=== PATIENT | female | born 1965 | race Caucasian/White ===

== ENCOUNTER 2016-12-04 12:16 | Outpatient (CLI) | payer BC ==
[2016-12-04 16:12] LABS: #Basophils 0.1 thou/uL (0.0-0.2); #Eosinphils 0.4 thou/uL (0.0-0.7); #Lymphocytes 1.9 thou/uL (1.20-3.40); #Monocytes 0.5 thou/uL (0.11-0.59); #Neutrophils 3.5 thou/uL (1.40-6.50); %Basophils 2.1 % (0.0-1.0); %Eosinophils 5.9 % (0.0-10.0); %Lymphocytes 29.6 % (21.0-51.0); %Monocytes 7.3 % (0.0-10.0); %Neutrophils 55.2 % (42.0-75.0); Hemoglobin 12.8 g/dL (12.0-16.0); Mean Corpuscular HGB CONC 33.5 g/dL (32.0-36.0); Mean Corpuscular Hemoglobin 31.2 pg (27.0-31.0); Mean Corpuscular Volume 93.3 fl (81.0-99.0); Mean Platelet Volume 6.7 fL (7.4-10.4); Platelet Count 228 thou/uL (130-400); RBC Distribution Width 12.2 % (11.5-14.5); White Blood Cell (WBC) Count 6.3 thou/uL (4.8-10.8)
[2016-12-04 16:25] LABS: ALT (SGPT) 19 U/L (8-55); AST (SGOT) 22 U/L (5-34); Albumin 3.9 g/dL (3.5-5.0); Alkaline Phosphatase 48 U/L (40-150); Anion Gap 13 mmol/L (10-20); BUN (Urea Nitrogen) 15 mg/dL (7.0-18.7); Bilirubin, Total 0.9 mg/dL (0.2-1.2); Calc. Creatinine Clearance 0 mL/min (70-130); Carbon Dioxide 26 mmol/L (22-29); Cardiac Risk 2.3 (Less than 4.5); Chloride 106 mmol/L (98-107); Cholesterol 155 mg/dl (< 200 Desired); Estimated GFR-MDRD 68; Globulin 2.9 g/dL (2.4-3.5); Glucose 85 mg/dL (70-105); HDL Cholesterol 66 mg/dL (>60 Neg Risk); LDL Cholesterol, Calculated 76 mg/dL; Potassium 4.7 mmol/L (3.5-5.1); Protein, Total 6.8 g/dL (6.0-8.3); Sodium 140 mmol/L (136-145); Triglycerides 65 mg/dL (Less than 150)
== END 2016-12-04 12:17 | disposition home or self-care (01) ==
LOC: LABLEX 12:16
PROVIDERS: ATTEND Family Medicine
DX: F41.9 Anxiety disorder, unspecified (principal); F43.9 Reaction to severe stress, unspecified; R07.9 Chest pain, unspecified
CPT/HCPCS: 80053; 80061; 84443; 85025

== ENCOUNTER → 2019-08-30 | Emergency (ER) | payer BC ==
--- NOTE | 2019-08-30 12:35 | RAD ---
Right elbow 3 views HISTORY: Fall. Injury. FINDINGS: Sagittally oriented fracture through the radial head just lateral to the midline with 1 mm depression of the lateral intra-articular fragment. Approximately 1 mm gap. Alignment is maintained. Fluid distention of the joint capsule on the lateral view with elevation of the distal hu meral fat pads. Proximal ulna is intact. IMPRESSION: Impacted mildly displaced intra-articular radial head fracture with hemarthrosis.
== END ==
LOC: BURERS 11:38
DX: S52.121A Displaced fracture of head of right radius, initial encounter for closed fracture (principal); S50.01XA Contusion of right elbow, initial encounter; W19.XXXA Unspecified fall, initial encounter